=== PATIENT | female | born 1935 | race Caucasian/White ===

== ENCOUNTER 2016-05-07 14:23 | Inpatient (IN) | payer OTHER ==
[2016-05-07 15:51] LABS: URINE MICRO REVIEW NEEDED? NO; URINE SOURCE CLEAN CATCH
--- NOTE | 2016-05-07 15:56 | Diag Imaging Result Document ---
PROCEDURE NAME: CHEST-2 VIEWS - 05/07/2016 FRONTAL AND LATERAL CHEST, 2 VIEWS. COMPARISON: Compared to 04/26/2016. FINDINGS: The lungs are well expanded. The heart is not enlarged. The vessels are not distended. No pneumonia. No pleural effusions. IMPRESSION: No acute abnormality.
[2016-05-07 15:59] LABS: BILIRUBIN URINE NEGATIVE (NEGATIVE); BLOOD URINE SMALL (NEGATIVE); COLOR YELLOW; GLUCOSE URINE NEGATIVE (NEGATIVE); LEUKOCYTES URINE SMALL (NEGATIVE); NITRITE URINE NEGATIVE (NEGATIVE); PROTEIN URINE TRACE mg/dL (NEGATIVE); SP GRAVITY URINE 1.018; TURBIDITY URINE HAZY (CLEAR); UROBILINOGEN URINE NORMAL (NORMAL)
[2016-05-07 16:00] LABS: BASO% 0.1 % (0.0-0.8); EOS# 0.02 X1000 (0.0-0.7); EOS% 0.1 % (0.0-10.0); HEMATOCRIT 35.5 % (37.0-47.0); HEMOGLOBIN 12.8 g/dL (12.0-16.0); IMM GRAN# 0.34 X1000 (0.0-0.04); IMM GRAN% 2.2 % (0.0-0.5); LYMPH# 0.85 X1000 (1.2-3.4); LYMPH% 5.5 % (20.5-51.1); MANUAL DIFF NEEDED? NO; MCH 28.1 PG (27-31); MCHC 36.1 g/dL (33-37); MONO# 0.99 X1000 (0.11-0.59); MONO% 6.5 % (1.7-9.3); MPV 10.5 FL (7.4-10.4); NEUT% 85.6 % (42.2-75.2); PLT 382 X1000 (130-400); RBC 4.55 XMIL (4.2-5.4)
[2016-05-07 16:01] LABS: UR EPITHELIAL CELLS <10 /HPF (<10); URINE BACTERIA 1+ /HPF; URINE CULTURE NEEDED? YES; URINE WBC <10 /HPF (<10)
--- NOTE | 2016-05-07 16:12 | Diag Imaging Result Document ---
PROCEDURE NAME: ABDOMEN FLAT/UPRIGHT - 05/07/2016 SITTING UPRIGHT AND SUPINE ABDOMEN 2 VIEWS: FINDINGS: There are distended small bowel loops in mid and lower abdomen and pelvis. There are multiple surgical clips in the pelvis and right abdomen. No free air beneath the diaphragm. No organomegaly. IMPRESSION: Distended small bowel loops consistent with a small-bowel obstruction.
[2016-05-07 16:14] LABS: ALBUMIN 3.7 g/dL (3.5-5.0); CALCIUM 8.5 mg/dL (8.8-10.2); POTASSIUM 5.5 mmol/L (3.5-5.1); TOTAL BILIRUBIN 0.46 mg/dL (0.20-1.00); TOTAL PROTEIN 6.2 g/dL (6.3-8.3)
[2016-05-07] MEDS ORDERED: CORTROSYN IV ONE (16:20)
[2016-05-07] MEDS ORDERED: NS 500 ML IV ONE (16:23)
[2016-05-07] MEDS ORDERED: SODIUM CHLORIDE 0.9% 10 ML ONE (16:48)
--- NOTE | 2016-05-07 18:25 | HISTORY AND PHYSICAL ---
CHIEF COMPLAINT: Persistent vomiting. PRESENT ILLNESS: Ms. Prather is an 80-year-old white female, followed in my office for many years with multiple medical problems, including type 2 diabetes mellitus, essential hypertension, hyperlipidemia, hypothyroidism, psoriasis, peptic ulcer disease and rheumatoid arthritis. She was admitted 2 weeks ago with acute symptomatic cholecystitis and underwent cholecystectomy on 04/25/2016, laparoscopically by Dr. Marie. Postoperatively she had an episode of pulmonary edema in the recovery room which required overnight observation in the ICU and IV Lasix. Her echocardiogram confirmed her aortic stenosis had progressed to severe bordering on critical. She had some nausea and vomiting after surgery, but was discharged on 04/28/2016 after 24 hours of no vomiting or nausea. Since discharge, she has had variable amounts of nausea, fairly well controlled with intermittent doses of Zofran and Phenergan tablets. For approximately 2 days, she has been unable to walk to the bathroom, but has been able to stand and transfer to a wheelchair for these trips. She has eaten some yogurt, chicken noodle soup, and drank clear liquids without much difficulty. Today, her called and said he felt she was weaker than usual and needed to be evaluated. He felt he could not get in the car and would require an ambulance. In the emergency room, laboratory has documented acute renal failure with a BUN of 135 , creatinine of 6.7, and serum sodium of 117 potassium 5.5. Acid base status is normal. Glucose is 121. She has been passing urine relatively normally. She denies dysuria. PAST MEDICAL HISTORY: Paroxysmal atrial fibrillation since 2012, [facility] [place] and treated with Eliquis and diltiazem. Approximately 5-6 years ago she has been admitted for GI bleed due to gastric ulcer from nonsteroidals. She is followed by Dr. 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 She has been type 2 diabetic for years and she has not generally been difficult to control. Her last hemoglobin A1c was 6.9. ALLERGIES: Cephalosporins, penicillin, sulfa drugs, tetracyclines, codeine and Lipitor. HOME MEDICATIONS: Eliquis 5 mg twice a day. Prandin 0.5 mg 3 times a day before meals. Carvedilol 25 mg twice a day. Sinemet CR 25/100, 1 at bedtime for restless legs. Metoclopramide 5 mg before meals as needed for nausea and vomiting. Diltiazem long-acting 120 mg q.12 hours. Prozac 20 mg every a.m. Folic acid 1 mg daily. Levothyroxine 100 mcg daily. Metformin ER 750 twice a day. Zofran ODT 4 mg q.6 hours p.r.n. nausea and vomiting. Ramipril 10 mg daily. Spironolactone/hydrochlorothiazide 25/25 1 daily. PAST SURGICAL HISTORY: Appendectomy years ago. Recent laparoscopic cholecystectomy. REVIEW OF SYSTEMS: General: No headache, fever, chills, night sweats. She is uncertain about weight loss. HEENT: Vision and hearing are adequate without recent changes. No difficulty chewing or swallowing. She has chronically reduced hearing in the left ear. Respiratory: No shortness of breath, cough, wheezing, chronic lung disease. Cardiovascular: No history of angina or ischemic heart disease. No recent chest pain. She denies orthopnea, but does sleep in a recliner for comfort. GI: Her appetite has been somewhat reduced due to the nausea. She denies any melena or coffee-ground emesis. : No dysuria, increased frequency of urination or hematuria. Neurologic: No history of strokes or seizures. Psychiatric: No major problems, but has taken Prozac daily for quite some time for slightly depressed mood. No memory problems noted. During her recent hospitalization she had occasional spells of very mild disorientation that many of her family noticed. Dermatologic: Mild psoriasis, well controlled with topical medications. Musculoskeletal: Stable but fairly moderate morning stiffness in multiple joints lasting 15-20 minutes, predominantly wrist and MCP joints. PHYSICAL EXAMINATION: VITAL SIGNS: Temperature is not recorded. Pulse is 80, blood pressure 114/30, respiratory rate 18, O2 saturation 97% on room air. GENERAL APPEARANCE: Obese, pale, elderly woman who is alert and oriented x3. SKIN: Warm, slightly pale without jaundice. Pupils equal, round, react to light. No scleral icterus. Oropharynx is benign. NECK: Supple. No adenopathy, JVD, thyromegaly or bruits. CARDIOVASCULAR: Regular rate and rhythm. Apical rate of 80. S1-S2 unremarkable. There is 3/6 systolic ejection murmur left upper sternal border with some radiation to the right upper sternal border and apex. This is moderately harsh sounding. There is no edema. RESPIRATORY: Lungs are clear to auscultation anteriorly and posteriorly. GI: Abdomen is soft, obese and nontender with no rebound tenderness or rigidity. Bowel sounds are slightly reduced, but active in all 4 quadrants. No CVA tenderness. EXTREMITIES: Moderate bilateral venous stasis changes in both distal shins. NEUROLOGIC: Mental status is normal. Cranial nerve examination is unremarkable. She moves all extremities on command. Gait is not tested. DATABASE: White blood count 15,300, hemoglobin 12.8, hematocrit 35.5, MCV is 78 , platelet count is 382,000. Sodium 118, potassium 5.5, BUN 135, creatinine 6.7, glucose 121, calcium 8.5, albumin 3.7. Urinalysis shows trace protein, less than 10 WBCs. 1+ bacteria. Abdominal x-ray shows some dilated and distended loops of small bowel in the mid and lower abdomen with no free air or organomegaly. Chest x-ray shows clear lungs. Normal heart size. No pleural effusions. ASSESSMENT: 1. Persistent nausea, vomiting. 2. Acute renal failure with elevated BUN and creatinine. Her baseline BUN is 10 -15, baseline creatinine 0.8 to 1. I have consulted Dr. Galindo and we have discussed multiple causes, including dehydration exacerbated by YOLIS inhibitors, interstitial nephritis, acute obstruction. 3. Hyponatremia. I feel we should rule out acute adrenal crisis with a Cortrosyn stem test. I have ordered 1 dose of IV Solu-Cortef pending results from this test. 4. Type 2 diabetes. Relatively well controlled. 5. We will hold metformin and Prandin for now, check fingerstick blood sugars twice a day and I doubt she will need supplemental insulin, but will order some just in case. 6. Leukocytosis, probably stress, will follow and hold antibiotics for now. Her examination does not suggest intra-abdominal infection and her urinalysis is unremarkable. Chest x-ray is clear. 7. Hypothyroidism, she has been taking her levothyroxine and thyroid stimulating hormones within the last several months was normal, but we will repeat this due to her hyponatremia. 8. Persistent vomiting, probably an ileus due to her hyponatremia, but small bowel obstruction is possible. I will get Dr. Marie, her surgeon to consult as well. PLAN: Admit for intravenous fluid and multiple evaluations as listed above. MTDD
[2016-05-07] MEDS ORDERED: BLISTEX MEDICATED BERRY LIP BALM TOP PRN (18:34)
[2016-05-07] MEDS ORDERED: PHENERGAN PR PRN (18:34)
[2016-05-07] MEDS ORDERED: SODIUM CHLORIDE 0.9% INJ SCH (18:34)
[2016-05-07] MEDS: NS 1,000 ML IV SCH (18:44)
[2016-05-07 18:53] LABS: URINE MICRO REVIEW NEEDED? NO; URINE SOURCE CATH
[2016-05-07 18:57] LABS: BILIRUBIN URINE NEGATIVE (NEGATIVE); BLOOD URINE NEGATIVE (NEGATIVE); COLOR YELLOW; GLUCOSE URINE NEGATIVE (NEGATIVE); LEUKOCYTES URINE NEGATIVE (NEGATIVE); NITRITE URINE NEGATIVE (NEGATIVE); PROTEIN URINE TRACE mg/dL (NEGATIVE); SP GRAVITY URINE 1.016; TURBIDITY URINE CLEAR (CLEAR); UROBILINOGEN URINE NORMAL (NORMAL)
[2016-05-07 18:58] LABS: UR EPITHELIAL CELLS <10 /HPF (<10); URINE BACTERIA NEGATIVE /HPF; URINE RBC <10 /HPF (<10); URINE WBC <10 /HPF (<10)
[2016-05-07 19:18] LABS: UR CREAT RANDOM 112.8 mg/dL (11-20); UR PROT RANDOM 19.5 mg/dL
--- NOTE | 2016-05-07 19:24 | CONSULTATION ---
DATE OF CONSULTATION: 05/07/2016 REASON FOR CONSULTATION: Acute kidney injury. HISTORY OF PRESENT ILLNESS: Ms. Prather is an 80-year-old white female with a history of aortic stenosis, venous stasis disease, hypertension. She had a recent cholecystectomy by Dr. Marie on the of this month. She was discharged on the and since that time she has been sick with anorexia, nausea, frequent vomiting and diarrhea. She has had progressive weakness, fatigue and limited mobility. She has noticed decrease in her urine output as well. Because of these symptoms, she contacted Dr. Lewis and then came to the emergency room. Her initial evaluation found her vital signs to be acceptable with a blood pressure of 114/70, heart rate of 80 but her initial laboratory data had evidence of acute kidney injury with hyponatremia. Historically, her creatinine was 1.4 on the and 0.8 on the . PAST MEDICAL HISTORY: As above. HOME MEDICATIONS: YOLIS inhibitor. ALLERGIES: Cephalexin, codeine, penicillin sulfa. SOCIAL HISTORY: She is and lives with her . No tobacco. FAMILY HISTORY: Otherwise noncontributory. REVIEW OF SYSTEMS: Otherwise noncontributory. PHYSICAL EXAMINATION: Vital Signs: Blood pressure 114/70, heart rate 80, respirations 18, afebrile. General: She is an elderly woman, lying at 20 degrees, no distress. Skin: Pale and dry. Conjunctivae are pink. Pupils are equal. Oropharynx is dry. Neck: Neck veins are not visible. Trachea is midline. Heart: Regular with a prominent systolic murmur. Late peaking loudest at the right upper sternal border. No gallops. Lungs: Equal breath sounds. No crackles. Abdomen: Obese and soft. Bowel sounds are present but diminished. Nontender. No organomegaly. Extremities: Trace edema in the right leg, none in the left. No clubbing or cyanosis. LABORATORY DATA: Sodium 118, potassium 5.5, chloride 68, bicarbonate 28, BUN 135, creatinine 6.7, hemoglobin 12.8. IMPRESSION: Acute kidney injury. Likely intravascular volume depletion in the context of YOLIS inhibitor therapy. This also likely explains her hyponatremia. She has received 0.5 L bolus and will receive 60 mL overnight. I agree with gentle IV fluid administration given her significant cardiac valvular disease. We will check urine electrolytes, eosinophils, etc. Re-evaluate in the morning.
[2016-05-07] MEDS ORDERED: SOLU-CORTEF IV ONE (20:00)
[2016-05-07] MEDS ORDERED: SYNTHROID IV ONE (22:00)
[2016-05-07] MEDS: SINEMET CR 25/100 PO SCH (22:45)
[2016-05-07] MEDS: COREG PO SCH (22:45)
[2016-05-07] MEDS: REGLAN IV SCH (22:45)
[2016-05-07] MEDS: ELIQUIS PO SCH (22:45)
[2016-05-07] MEDS: CARDIZEM LA PO SCH (22:45)
[2016-05-08] MEDS: REGLAN IV SCH ×4 (04:22→20:54)
[2016-05-08 07:02] LABS: POTASSIUM 4.6 mmol/L (3.5-5.1)
[2016-05-08] MEDS ORDERED: NS 500 ML IV ONE ×2 (08:31→14:12)
[2016-05-08] MEDS: CARDIZEM LA PO SCH ×2 (09:16→20:43)
[2016-05-08] MEDS: SYNTHROID PO SCH (09:16)
[2016-05-08] MEDS: ELIQUIS PO SCH ×2 (09:16→20:43)
[2016-05-08] MEDS: COREG PO SCH ×2 (09:16→20:43)
[2016-05-08] MEDS: NS 1,000 ML IV SCH ×2 (09:19→12:43)
--- NOTE | 2016-05-08 10:14 | Diag Imaging Result Document ---
PROCEDURE NAME: US RENAL 2 (RETROPER) COMPLETE - 05/08/2016 RENAL ULTRASOUND: COMPARISON: None available. FINDINGS: There is a tiny simple-appearing cyst measuring up to 7 mm at the lower pole of the right kidney. The kidneys are otherwise grossly normal in echotexture with no discrete solid mass or hydronephrosis. The right kidney measures 12.1 cm, and the left kidney measures 10.3 cm in the greatest longitudinal axes. The right renal cortex measures up to 0.9 cm, and the left renal cortex measures up to 1.1 cm in thickness. There is a Gallego catheter in the urinary bladder. The bladder is nondistended. IMPRESSION: Tiny right renal cyst but otherwise essentially unremarkable renal ultrasound.
--- NOTE | 2016-05-08 11:38 | PROGRESS NOTE ---
DATE: 05/08/2016 SUBJECTIVE: Ms. Prather is currently sitting in a chair. She denies any chest pain or increased work of breathing. She is finishing her breakfast and brushing her teeth. States that she is feeling much better. OBJECTIVE: Vital Signs: Temperature 97.6 degrees, blood pressure 122/48, heart rate 78, respirations 20. She remains on room air. Last recorded saturation 100%. She has had 626 in. She has had 250 out per Gallego catheter. We have requested that they continue to keep an accurate I and O. PHYSICAL EXAMINATION: General: This is an 80-year-old white female. She is currently resting in bed. She appears chronically ill, with no acute distress. Skin: Warm and dry. HEENT: Normocephalic, atraumatic. Conjunctiva is pale. She has pupils equal, round, and reactive to light. Mucous membranes moist. Neck: Supple. Trachea midline. No jugular venous distention. Cardiovascular: Regular rate and rhythm with a positive systolic murmur. No gallop appreciated. Lungs: Clear to auscultation anteriorly. Equal excursion. She is currently on room air. Abdomen: Large, round, soft, and nontender. Positive bowel sounds. Extremities: Have trace edema on the right, with minimal pretibial on the left. She continues with chronic venous stasis while she is sitting up in a chair. Mostly reddened in appearance to her lower legs. No clubbing or cyanosis. Neurological: Alert and oriented x3. LABS: This a.m. sodium is 121, potassium 4.6, chloride 73, CO2 25. BUN 145, creatinine 5.8. Glucose 126. Her anion gap is 23. Her calcium is 8, phosphorus 5.1, albumin of 3. Previous hemoglobin 12.8 on the . Her TSH came back at 15.15. Urinalysis shows trace proteinuria. Urine culture came back with gram-positive cocci. Sensitivity still pending. Renal ultrasound right kidney measuring 12.1 and the left measuring 10.3, with a simple cyst to the right lower pole. ASSESSMENT AND PLAN: 1. Acute kidney injury. This appears to be secondary to fluid volume depletion in the context of her YOLIS. This is currently being held. She is receiving gentle fluid hydration of normal saline at 50 mL an hour. Her urine eosinophils came back at 0.02. We still have urine electrolytes that are still pending. 2. Electrolytes. Her hyponatremia is improved and she is asymptomatic. Continue NS. 3. Acid-base balance. Patient continues with an anion gap acidosis. We will continue to monitor. No further indications for intervention at this time. 4. Anemia. This remains low, but stable. 5. Nausea and vomiting. This has continued to improve. She is currently continued off her YOLIS and her metformin. No indications for any intervention at this time. 6. Questionable ileus. Dr. Marie is currently following. I would to thank you for allowing us to follow with this patient. Seen, data reviewed, discussed with Ekaterina Howell on 05/08/16. I agree with the above assessment and plan of care. rg Dictated by CARLOS Anderson for Efren Galindo MD [facility] HOSPITALDelroy
[2016-05-08] MEDS: SINEMET CR 25/100 PO SCH (20:43)
[2016-05-09] MEDS: REGLAN IV SCH ×4 (01:55→22:07)
[2016-05-09] MEDS: NS 1,000 ML IV SCH ×4 (01:56→15:08)
[2016-05-09 06:47] LABS: MANUAL DIFF NEEDED? NO
[2016-05-09 07:10] LABS: CALCIUM 7.4 mg/dL (8.8-10.2); POTASSIUM 4.2 mmol/L (3.5-5.1)
[2016-05-09 07:27] LABS: BASO% 0.2 % (0.0-0.8); EOS# 0.06 X1000 (0.0-0.7); EOS% 0.5 % (0.0-10.0); HEMATOCRIT 30.9 % (37.0-47.0); HEMOGLOBIN 10.9 g/dL (12.0-16.0); IMM GRAN# 0.45 X1000 (0.0-0.04); IMM GRAN% 3.5 % (0.0-0.5); LYMPH# 0.85 X1000 (1.2-3.4); LYMPH% 6.6 % (20.5-51.1); MCH 27.9 PG (27-31); MCHC 35.3 g/dL (33-37); MCV 79.2 FL (81-99); MONO# 0.87 X1000 (0.11-0.59); MONO% 6.8 % (1.7-9.3); MPV 10.8 FL (7.4-10.4); NEUT% 82.4 % (42.2-75.2); PLT 242 X1000 (130-400)
--- NOTE | 2016-05-09 07:54 | PROGRESS NOTE ---
DATE: 05/09/2016 HISTORY OF PRESENT ILLNESS: Ms. Marly Prather earlier this month underwent a laparoscopic cholecystectomy with intraoperative cholangiogram for symptomatic cholelithiasis. In the perioperative period, she had a low sodium. She had to be hospitalized several days after her cholecystectomy and then was discharged home but while home, she had nausea and vomiting, and also diarrhea. She was readmitted with acute renal failure and low sodium to Michael Lewis MD. Her electrolytes are being corrected. An abdominal x-ray suggested ileus. OBJECTIVE: Her heart rate is 75, blood pressure 129/54, O2 saturation 97%. Her urine output is adequate. Her BUN and creatinine are improving. Her BUN is 140, creatinine is 5, her sodium was 122, and chloride is 80. Liver function tests on admission were within normal limits. Her hematocrit is 31% and her white blood cell count has gone from 15-12. She is continuing to have loose bowel movements. She is afebrile. PLAN: I agree with Dr. Lewis to continue to correct her electrolytes. I would be surprised if there is any bowel obstruction from her laparoscopic cholecystectomy. I feel we did the operation safely and we did do an intraoperative cholangiogram at the time of surgery and there were no abnormalities on this study. All her trocar sites are healing well and she has no significant abdominal pain.
[2016-05-09] MEDS: ZOFRAN ODT PO PRN (08:39)
--- NOTE | 2016-05-09 10:10 | PROGRESS NOTE ---
DATE: 05/09/2016 SUBJECTIVE: Currently resting in bed. She is awake, alert. She states that she sat up in a chair for several hours yesterday and is feeling somewhat better. OBJECTIVE: Vital Signs: Temperature 97.9 degrees, pulse 75, respiratory rate 20, blood pressure 129/54. Intake and output: Intake 1.2 L. Output 1 L. General: This is an elderly female, sitting up in bed, chronically ill-appearing but in no acute distress. HEENT: Normocephalic, atraumatic. Conjunctivae remain pale. Oral mucosa moist. Neck: Supple. Trachea midline without JVD. Cardiovascular: Regular rate and rhythm with a systolic murmur. Pulmonary: Equal excursion. She is clear bilaterally. She has no increased work of breathing. Abdomen: Round, soft, with positive bowel sounds. Extremities: She continues with 1+ pretibial edema and chronic venous stasis changes bilateral lower extremities. She does have redness noted bilateral lower extremities, somewhat speckled and appearance. Her extremities are warm and she is moving all extremities. Integumentary: Skin is warm and dry otherwise. Neurologic: Grossly nonfocal. Awake, alert, oriented x3 to 4. LAB DATA: WBC of 12.8, hemoglobin 10.9, hematocrit 30.9, platelet count of 242, 000. Sodium 122, potassium 4.2, CO2 25, BUN 140, creatinine 5.0. ASSESSMENT AND PLAN: 1. Acute kidney injury with modest improvement. We will continue current treatment and make no changes. Recheck labs in the morning. 2. Electrolytes. Her sodium is stable at 122. Observe. 3. Acid-base balance, anemia, stable. 4. Nausea and vomiting. Followed by primary. 5. Question ileus. Followed by surgery. Seen, data reviewed, discussed with Kendrick Mac on 05/09/16. I agree with the above assessment and plan of care. rg Dictated by CARLOS Saucedo for Efren Galindo MD [facility]
[2016-05-09] MEDS: ELIQUIS PO SCH ×2 (10:48→22:07)
[2016-05-09] MEDS: SYNTHROID PO SCH (10:48)
[2016-05-09] MEDS: MACROBID PO SCH ×2 (10:48→22:06)
[2016-05-09] MEDS: COREG PO SCH ×2 (10:49→22:06)
[2016-05-09] MEDS: CARDIZEM LA PO SCH ×2 (10:49→22:07)
[2016-05-09] MEDS: HUMALOG SUBQ PRN (17:44)
[2016-05-09] MEDS: SINEMET CR 25/100 PO SCH (22:06)
[2016-05-10] MEDS: NS 1,000 ML IV SCH ×2 (03:04→12:12)
[2016-05-10 06:51] LABS: ALBUMIN 3.1 g/dL (3.5-5.0); CALCIUM 7.2 mg/dL (8.8-10.2); POTASSIUM 3.9 mmol/L (3.5-5.1)
--- NOTE | 2016-05-10 07:46 | PROGRESS NOTE ---
DATE: 05/10/2016 Ms. Prather is an 80-year-old white female, patient of Dr. Lewis, who approximately 2 weeks ago underwent a laparoscopic cholecystectomy for gallstones. At the time of surgery, we did do an intraoperative cholangiogram, which showed no evidence of extrahepatic stones nor obstruction. There was free flow of dye into the duodenum. She was discharged several days after her laparoscopic cholecystectomy but returned with nausea, vomiting, acute renal failure, dehydration, and decreased sodium. She is now hospital day 4 and has improved clinically with hydration per Dr. Lewis. Her heart rate is 59, blood pressure 131/64. O2 saturation 98%. Her urine output has been good and her BUN and creatinine are decreasing daily. Her BUN is 120. Creatinine 3.4 today. Her sodium is 125, chloride is 84. Her hematocrit is 31% and her white blood cell count is 12.8. She has been able to tolerate a diet and she has had regular liquid bowel movements. All her trocar sites are healing well, and she has no worrisome abdominal pain. Her Clostridium difficile toxin A and B is negative. I feel that as her electrolytes return to normal and her kidney function that her ileus will resolve intra-abdominally. I think she is okay from her recent laparoscopic cholecystectomy. I will be off for the New Year's weak and [facility] will cover if necessary.
[2016-05-10] MEDS: REGLAN IV SCH (10:12)
[2016-05-10] MEDS: ELIQUIS PO SCH ×2 (10:13→22:41)
[2016-05-10] MEDS: SYNTHROID PO SCH (10:13)
[2016-05-10] MEDS: ZOFRAN ODT PO PRN (10:13)
[2016-05-10] MEDS: COREG PO SCH ×2 (10:13→22:41)
[2016-05-10] MEDS: CARDIZEM LA PO SCH ×2 (10:13→22:41)
--- NOTE | 2016-05-10 11:39 | CONSULTATION ---
DATE OF CONSULTATION: 05/10/2016 REASON FOR REFERRAL: Nausea, vomiting, diarrhea. HISTORY OF PRESENT ILLNESS: This is an 80-year-old, white female, who had recent laparoscopic cholecystectomy on 04/25/[address] Marie. Postoperatively, she had some complaints of nausea and vomiting. She was discharged home on 04/28/2016. She had continued to complain of some nausea. She became weak and was unable to walk and they called ambulance to bring her to the hospital for further evaluation. Admit date 05/07/2016. On evaluation, she had acute renal failure. She has been seen by Dr. Galindo. Since her admission, her symptoms have slowly improved. X-ray had showed possible ileus. She does report having some diarrhea. She has been able to tolerate some full liquid diet. She states her symptoms are currently improving. No reported abdominal pain. She reported some gas. Reported nausea and gagging, but no reported vomiting over the last several days. No reported blood in the stool or black stools. She reports having a colonoscopy years ago by Dr. Snow in [place]. She reports a history of GI bleed and gastric ulcers years ago. PAST MEDICAL HISTORY: Atrial fibrillation. Followed by Dr. Underwood in [place]. Type 2 diabetes, hypertension, hyperlipidemia, hypothyroidism, psoriasis, peptic ulcer disease. Rheumatoid arthritis. PAST SURGICAL HISTORY: Appendectomy. She had recent laparoscopic cholecystectomy by Dr. Marie on 04/25/2016. ALLERGIES: To cephalosporins, penicillin, sulfa drugs, codeine. HOME MEDICATIONS: Sinemet every night. Eliquis 5 mg twice a day. Cardizem 120 every 12 hours. Coreg 12.5 every 12 hours, folic acid 1 mg daily. Prozac 20 mg daily. Guaifenesin 600 mg every 12 hours. Glucophage 750 mg twice a day. Synthroid 100 mcg daily. Reglan 5 mg a.c. and at bedtime, Altace 10 mg every morning. Ondansetron 4 mg every 6 hours as needed. Spironolactone every day, Prandin 1 mg 3 times a day. SOCIAL HISTORY: She is . She denies tobacco use. REVIEW OF SYSTEMS: Per HPI. PHYSICAL EXAM: Vital Signs: Temperature 97.5, pulse 65, respirations 17, blood pressure 121/47. General Exam: Patient is awake, alert, and oriented to person, place and time. She is sitting up in a chair. No distress noted. Respiratory: Lung sounds essentially clear bilaterally. Cardiovascular: Regular rate and rhythm. She has a noted murmur. GI: Obese, nontender. She has healing laparoscopic incisions from her cholecystectomy. Hypoactive bowel sounds noted. DIAGNOSTIC RESULTS: Abdominal x-ray on 05/07/2016 showed distended small bowel loops consistent with a small-bowel obstruction. LABORATORY: Hematology on 05/09/2016, WBC 12.81, hemoglobin 10.9, hematocrit 30.9, MCV 79.2, platelets 242. Chemistry: Sodium 125, potassium 3.9, chloride 84, CO2 of 25, BUN 120. Creatinine 3.4, glucose 160, calcium 7.2. Phosphorus 2.9, total bilirubin 0.46. AST 25, ALT 19, alkaline phosphatase 46. ASSESSMENT: 1. Nausea, vomiting improved. 2. Recent laparoscopic cholecystectomy. 3. Ileus versus small bowel obstruction. 4. Electrolyte imbalance. 5. Acute kidney injury, followed by Dr. Galindo. PLAN: Continue symptomatic treatment and supportive care. Replace electrolytes. Repeat abdominal x-ray in the morning. Patient states her symptoms are improving. I discussed with her the options of proceeding with an EGD for further evaluation, but she states she wants to hold off proceeding for now, since her symptoms are improving. I will discuss this case with Dr. Clements. He is on-call over the holiday weekend. Further plans will be made as needed. Continue medications. We will add PPI. Thank you for this consultation. Dictated by CARLOS Kiser for Med Clements MD
[2016-05-10] MEDS: REGLAN PO SCH ×3 (12:12→22:41)
--- NOTE | 2016-05-10 14:04 | PROGRESS NOTE ---
DATE: 05/10/2016 SUBJECTIVE: She is sitting up. She states she still had some nausea and some diarrhea. No shortness of breath. OBJECTIVE: Vital Signs: Blood pressure 121/47, heart rate 65, respirations 17, afebrile. Intake 3.6 L. Output 2.2 L. Physical Exam: Elderly woman in no acute distress. Sitting erect. Skin: Warm and dry. HEENT: Conjunctivae are pink. Oropharynx is moist. Neck: Neck veins are not distended. Trachea is midline. Heart: Regular with systolic murmur. No change. Lungs: Have equal excursion. Equal breath sounds. No crackles. Abdomen: Obese and soft. Bowel sounds are present. Extremities: Have 1+ edema. No clubbing or cyanosis. LABORATORY DATA: Sodium 125, potassium 3.9, chloride 84, bicarbonate 25, BUN 120, creatinine 3.4. IMPRESSION: 1. Acute kidney injury. Progressive improvement with gentle IV fluids. She is net positive approximately 3 L since admission. Of course, her liquid stool has not been accounted for. She does have more edema but her neck veins are not distended. and she does not have crackles so we will continue same treatment. 2. Hyponatremia: Slow improvement. Continue same.
[2016-05-10] MEDS: HUMALOG SUBQ PRN (17:18)
[2016-05-10] MEDS: SINEMET CR 25/100 PO SCH (22:41)
[2016-05-11] MEDS: NS 1,000 ML IV SCH (01:54)
[2016-05-11] MEDS: PRILOSEC PO SCH (06:24)
[2016-05-11] MEDS: REGLAN PO SCH ×4 (06:24→21:45)
[2016-05-11] MEDS: HUMALOG SUBQ PRN (06:53)
[2016-05-11 07:31] LABS: CALCIUM 7.5 mg/dL (8.8-10.2); POTASSIUM 4.1 mmol/L (3.5-5.1)
[2016-05-11] MEDS: COREG PO SCH (09:12)
[2016-05-11] MEDS: ELIQUIS PO SCH ×2 (09:12→21:45)
[2016-05-11] MEDS: CARDIZEM LA PO SCH (09:12)
[2016-05-11] MEDS: SYNTHROID PO SCH (09:12)
--- NOTE | 2016-05-11 09:19 | Diag Imaging Result Document ---
PROCEDURE NAME: ABDOMEN FLAT/UPRIGHT - 05/11/2016 X-RAY ABDOMEN 2 VIEWS: COMPARISON: 05/07/2016. FINDINGS: There is not much change in the small bowel obstruction. No colon gas. IMPRESSION: Persistent small-bowel obstruction.
--- NOTE | 2016-05-11 10:30 | PROGRESS NOTE ---
DATE: 05/11/2016 SUBJECTIVE: Mrs. Prather was admitted to [facility] with intractable nausea, vomiting, and abdominal pain. She was status post recent laparoscopic cholecystectomy. Her abdominal film on 05/07/2016 demonstrated distended small bowel loops consistent with a small bowel obstruction. She continues with persistent nausea and dry heaves but has not had any vomiting. She is still having intermittent episodes of diarrhea. She also still has some abdominal bloating and distention. Repeat abdominal films today demonstrated persistent small bowel obstruction. There was no colon gas. Renal function continues to improve significantly with cautious rehydration. Her BUN and creatinine have dropped from 120 and 3.4 to 95 and 2.2. Her blood sugars are still fluctuating. OBJECTIVE: Vital Signs: Temperature 98.3 degrees. Pulse 61. Respirations 19. BP 108/45. CV: Regular rate and rhythm with a soft systolic murmur at the left sternal margin. Lungs: Clear. Abdomen: Mildly distended but soft. She has some high pitched bowel sounds. Various. LABORATORY DATA: Various laboratory studies were obtained. A BMP demonstrated the following: Sodium 125, potassium 4.1, chloride 88, CO2 of 20, BUN 95, creatinine 2.2, and glucose 211. ASSESSMENT AND PLAN: 1. Acute renal failure. Her renal function continues to improve. We will continue gentle hydration and check a BMP in the morning. 2. Small bowel obstruction. Clinically, her symptoms have improved but she still has what appears to be a persistent small bowel obstruction on x-rays. Her abdomen is mildly distended but soft. I talked to her at length about placing an NG tube to decompress her stomach but she does not want to have an NG tube at this point in time. I am going to hold her NPO, continue cautious fluid resuscitation, and treat her nausea and vomiting on a p.r.n. basis with Zofran. I will recheck a flat and upright abdominal film in the morning.
--- NOTE | 2016-05-11 12:01 | PROGRESS NOTE ---
DATE: 05/11/2016 SUBJECTIVE: She states she is passing some gas and may be having some improvement regarding her GI symptoms. No shortness of breath. OBJECTIVE: Vital Signs: Blood pressure 108/45, heart rate 61, respirations 19, afebrile. Intake 2.3 L. Output 400 mL. PHYSICAL EXAMINATION: No acute distress. Skin is warm and dry. Conjunctivae are pink. Trachea is midline. Neck veins are modestly distended with hepatojugular reflux. Heart os regular with systolic murmur. Lungs have equal breath sounds. Shallow, no crackles. Abdomen is obese and soft. Bowel sounds are present. Extremities have 1+ edema. No clubbing or cyanosis. LABORATORY DATA: Sodium 125, potassium 4.1, chloride 88, bicarbonate 20, BUN 95, creatinine 2.2. IMPRESSION: 1. Acute kidney injury: Progressive improvement. She has signs of modest volume x overload at this point, so I will stop her IV fluids and observe. 2. Hyponatremia. Progressive improvement. Sow. No changes except as above.
[2016-05-11] MEDS ORDERED: DULCOLAX PR ONE (13:45)
--- NOTE | 2016-05-11 17:47 | PROGRESS NOTE ---
DATE: 05/11/2016 Mrs. Prather reports that she is feeling better this afternoon she has not had any nausea or vomiting. She is passing flatus and passed a small soft semiformed stools. She does have intermittent diarrhea. She denies any chest pain, palpitations, or anginal equivalents. We will continue fluids and NPO status and recheck a flat and upright abdominal film in the morning. If she continues to pass flatus and small semiformed stools and her abdominal films are improved, we will begin clear liquids in the morning.
[2016-05-11] MEDS: SINEMET CR 25/100 PO SCH (21:45)
[2016-05-12] MEDS: COREG PO SCH ×3 (03:56→21:57)
[2016-05-12] MEDS: CARDIZEM LA PO SCH ×3 (03:56→21:57)
[2016-05-12] MEDS: PRILOSEC PO SCH (06:18)
[2016-05-12] MEDS: REGLAN PO SCH ×4 (06:18→21:55)
[2016-05-12 07:18] LABS: CALCIUM 7.7 mg/dL (8.8-10.2); POTASSIUM 3.9 mmol/L (3.5-5.1)
[2016-05-12] MEDS: SYNTHROID PO SCH (09:19)
[2016-05-12] MEDS: ELIQUIS PO SCH ×2 (09:19→21:55)
--- NOTE | 2016-05-12 10:45 | Diag Imaging Result Document ---
PROCEDURE NAME: ABDOMEN FLAT/UPRIGHT - 05/12/2016 X-RAY ABDOMEN, TWO VIEWS: COMPARISON: 05/12/2016. FINDINGS: There is no change in the persistent high-grade small bowel obstruction. IMPRESSION: No change in the small bowel obstruction.
[2016-05-12] MEDS: MIRALAX PO SCH (14:48)
[2016-05-12] MEDS ORDERED: CALMOSEPTINE OINTMENT TOP PRN (18:35)
--- NOTE | 2016-05-12 19:41 | PROGRESS NOTE ---
DATE: 05/12/2016 SUBJECTIVE: Patient has no complaints. She is alert and smiling. She states that she had a fair amount of stool output yesterday and can tell that her stomach has gone down in girth. She does not have any pain. She has had no nausea or vomiting. OBJECTIVE: Vital Signs: 97.5, 68, 18, 124/41. PHYSICAL EXAMINATION: General: She is a well-developed obese white female in no acute distress. Lungs: Clear to auscultation. Cardiovascular: Reveals a regular rhythm with a 3/6 systolic ejection murmur which sounds loudest in the pulmonic area. Abdomen: Bowel sounds are scarce. She is obese and is difficult to determine just exactly how distended her abdomen is. She is nontender. Extremities: 1+ pitting edema in the lower extremities. Neurologic: Patient is alert, oriented, conversive and appropriate. ASSESSMENT AND PLAN: 1. The patient's acute renal failure seems to have resolves, she is at 1.7 creatinine. Will continue to check this tomorrow. 2. The patient's small bowel obstruction does not seem to have resolved on x-ray but clinically she is vastly improved by her own words. She is still not having regular flatus or bowel movements but seems to be progressing. Her abdominal exam is difficult because of her size. I plan to keep the patient on just clear liquids in the form of ice chips and sips of water. Will continue medications and add MiraLAX. We have medications as needed for nausea or vomiting.
[2016-05-12] MEDS: SINEMET CR 25/100 PO SCH (21:54)
[2016-05-13] MEDS: HUMALOG SUBQ PRN (06:40)
[2016-05-13] MEDS: REGLAN PO SCH ×4 (06:40→22:26)
[2016-05-13] MEDS: PRILOSEC PO SCH (06:40)
[2016-05-13 06:52] LABS: MANUAL DIFF NEEDED? NO
[2016-05-13 06:57] LABS: BASO% 0.1 % (0.0-0.8); EOS# 0.16 X1000 (0.0-0.7); EOS% 1.7 % (0.0-10.0); HEMATOCRIT 29.2 % (37.0-47.0); HEMOGLOBIN 9.8 g/dL (12.0-16.0); LYMPH# 0.81 X1000 (1.2-3.4); LYMPH% 8.4 % (20.5-51.1); MCH 28.2 PG (27-31); MCHC 33.6 g/dL (33-37); MCV 84.1 FL (81-99); MONO# 0.84 X1000 (0.11-0.59); MONO% 8.7 % (1.7-9.3); MPV 10.5 FL (7.4-10.4); NEUT% 81.1 % (42.2-75.2); PLT 204 X1000 (130-400); RBC 3.47 XMIL (4.2-5.4)
[2016-05-13 07:18] LABS: CALCIUM 8.1 mg/dL (8.8-10.2); POTASSIUM 3.8 mmol/L (3.5-5.1)
[2016-05-13] MEDS: COREG PO SCH ×2 (08:37→22:26)
[2016-05-13] MEDS: SYNTHROID PO SCH (08:37)
[2016-05-13] MEDS: CARDIZEM LA PO SCH ×2 (08:37→22:26)
[2016-05-13] MEDS: ELIQUIS PO SCH ×2 (08:37→22:26)
[2016-05-13] MEDS: MIRALAX PO SCH (08:37)
--- NOTE | 2016-05-13 08:47 | PROGRESS NOTE ---
DATE: 05/13/2016 SUBJECTIVE: Ms. Prather is sitting up in a chair. She is tolerating this well. She denies chest pain or increased work of breathing. She denies any nausea, vomiting. OBJECTIVE: Her most recent vital signs, temperature is 97.9 degrees, blood pressure 108/48, heart rate is 65 and respirations 18. She is on room air. Last recorded saturation of 100%. She has had 0 recorded in. She has had 500 out with bowel movements yesterday. LABORATORY DATA: This a.m., sodium 132, potassium 3.8, chloride 95, CO2 23, BUN 70, creatinine 1.4, glucose 188. Her anion gap is 14, calcium 8.1, white count 9.64, hemoglobin 9.8, hematocrit 29.2, with a platelet count of 204,000. PHYSICAL EXAMINATION: General: This is an 80-year-old white female. She is currently resting in a chair. She appears in no acute distress. Skin: Warm and dry. HEENT: Normocephalic, atraumatic. Conjunctiva is pale. She has ZUNILDA. Mucous membranes moist. Neck : Supple. Trachea midline. No JVD. Cardiovascular: Regular rate and rhythm. She has a positive systolic murmur as previous. Lungs: Clear to auscultation anteriorly. Equal excursion. She is on room air. Abdomen: Round, soft, nontender. Positive bowel sounds. Genitourinary: Not inspected. Adequate void. Extremities: Continues with 1+ lower extremity edema. She continues with chronic venous stasis bilateral. No clubbing or cyanosis. Neurological: Alert and oriented x3. ASSESSMENT: 1. Acute kidney injury. Progressive improvement. Patient's fluid volume overload has improved. Her IV fluids have been stopped. Her hyponatremia continues to improve over the last several days. No indications for any intervention at this time. 2. Acid-base balance. This is stable. 3. Anemia. This remains low but stable. No indications for any changes at this time. PLAN: It is okay from our perspective for patient to be discharged. We can follow her up as an outpatient basis as indicated. I would like to thank you for allowing us to follow with this patient. Seen, data reviewed, discussed with Ekaterina Howell on 05/13/16. I agree with the above assessment and plan of care. rg Dictated by CARLOS Anderson for Efren Galindo MD [facility]
--- NOTE | 2016-05-13 10:30 | PROGRESS NOTE ---
DATE: 05/13/2016 SUBJECTIVE: Ms. Prather has was admitted with acute renal insufficiency. Her renal function continues to improve. Her BUN and creatinine 135 and 6.7 on 05/07. This morning. Her BUN and creatinine are 70 and 1.4. She is voiding freely. Lorrie and upright abdominal cells were consistent with a high-grade small-bowel obstruction. Clinically, she reports that she feels much better. Her abdomen is much softer. She is passing some gas. She is having multiple loose stools. She has no nausea or vomiting. range from 185-205. OBJECTIVE: Vital Signs: Temperature 97.4 degrees, pulse 64, respirations 19, blood pressure 129/42. Cardiovascular: Regular rate and rhythm with a soft systolic murmur. Lungs: Clear. Abdomen: Fairly soft and nondistended. No rebound or guarding. She does have some bowel sounds. ASSESSMENT AND PLAN: 1. Small bowel obstruction. Her x-ray showed a small bowel obstruction but clinically her abdomen is fairly soft but mildly distended. She has bowel sounds. She is passing flatus and having bowel movements. I am going to repeat a flat and upright abdominal film today and begin clear liquids. 2. Acute renal failure. Her renal function continues to improve. We will follow her kidney function. I will recheck a BMP in the morning.
--- NOTE | 2016-05-13 12:24 | Diag Imaging Result Document ---
PROCEDURE NAME: ABDOMEN FLAT/UPRIGHT - 05/13/2016 X-RAY ABDOMEN 2 VIEWS: COMPARISON: 05/12/2016. FINDINGS: There is no change in the high-grade small bowel obstruction. IMPRESSION: No change in the small bowel obstruction.
[2016-05-13] MEDS: SINEMET CR 25/100 PO SCH (22:26)
[2016-05-14] MEDS: REGLAN PO SCH ×4 (07:02→20:22)
[2016-05-14] MEDS: PRILOSEC PO SCH (07:02)
[2016-05-14 07:18] LABS: ALBUMIN 3.4 g/dL (3.5-5.0); CALCIUM 8.7 mg/dL (8.8-10.2); POTASSIUM 4.6 mmol/L (3.5-5.1)
[2016-05-14] MEDS: SYNTHROID PO SCH (09:03)
[2016-05-14] MEDS: COREG PO SCH ×2 (09:03→20:22)
[2016-05-14] MEDS: CARDIZEM LA PO SCH ×2 (09:03→20:22)
[2016-05-14] MEDS: ELIQUIS PO SCH ×2 (09:03→20:22)
[2016-05-14] MEDS: MIRALAX PO SCH (09:04)
--- NOTE | 2016-05-14 10:02 | PROGRESS NOTE ---
DATE: 05/14/2016 HISTORY OF PRESENT ILLNESS: Ms. Prather was admitted with abdominal pain. Her initial x-ray of the abdomen demonstrated an ileus versus small bowel obstruction. Her clinical course did not really correlate with her x-ray findings. Her abdomen was fairly soft. She was having nausea. She had been passing gas and had liquid stools. Followup x-rays of the abdomen were consistent with a high-grade small bowel obstruction but her symptoms were not consistent with the x-ray findings. We talked about putting an NG tube in place but she did not want to have an NG tube placed and wanted to try conservative measures. We resumed clear liquids yesterday and this morning, she is with complaint of increasing abdominal bloating and distention. She had some nausea and vomiting. She is still passing liquid stools. Her renal function continues to improve. Her BUN was 61 and her creatinine was 1.4. PHYSICAL EXAMINATION: Vital Signs: Temperature 98.5 degrees, pulse 74, respirations 19, BP 126/45. CV: Regular rate and rhythm with a 2/6 systolic ejection murmur at the left sternal margin. Lungs: Clear. Abdomen: Fairly soft. Mildly distended. She does have some high pitched bowel sounds. Extremities: Trace edema. ASSESSMENT AND PLAN: 1. Abdominal pain. Her repeat x-ray of the abdomen was consistent with high-grade small bowel obstruction. She is having more nausea, diarrhea, and has high-pitched bowel sounds. I had a long discussion with Ms. Prather and we are going ahead and placing a nasogastric tube to low Gomco suction. 2. Acute renal failure. Her renal function has improved significantly and she is nearing her baseline. 3. Type 2 insulin-dependent diabetes mellitus. We will continue patterned sugars, Humulin sliding scale, and her regular home dosage of Lantus.
--- NOTE | 2016-05-14 12:21 | PROGRESS NOTE ---
DATE: 05/14/2016 SUBJECTIVE: Ms. Prather is resting quietly in bed. She denies any chest pain. No increased work of breathing. States that she is feeling much better. Denies nausea and vomiting. OBJECTIVE: Her most recent vital signs are temperature 98.5 degrees, blood pressure 126/45, heart rate 74, respirations 19. She is currently on room air. Last recorded saturation 99%. She has had 360 in. She has had 200+ out void. LABORATORY DATA: This a.m., sodium 132, potassium 4.6, chloride 94, CO2 22, BUN 61, creatinine 1.4. Glucose 260. Anion gap 16, calcium 8.7, phosphorus 1.6, albumin 3.4. Previous hemoglobin 9.8 on the . PHYSICAL EXAMINATION: General: This is an 80-year-old white female. She is sitting up in bed. She is resting. She states that she has been intermittently awake since 2:30 this a.m. She is in no acute distress. Skin: Warm and dry. HEENT: Normocephalic, atraumatic. Conjunctiva is pale. She has ZUNILDA. Mucous membranes moist. Neck: Supple. Trachea midline. No JVD. Cardiovascular: Regular rate and rhythm. She continues with a soft systolic murmur. No gallop noted. Lungs: Clear to auscultation anteriorly. Equal excursion. She remains on room air. Abdomen: Round, soft, nontender. Positive bowel sounds. Genitourinary: Not inspected. She has adequate void. Extremities: Continues with 1+ edema. No clubbing or cyanosis. Neurological: Alert and oriented x3. Integumentary: No rashes or lesions evident. ASSESSMENT AND PLAN: 1. Acute kidney injury. Patient's creatinine continues to improve. She has leveled off at a baseline of creatinine of 1.4. BUN continues to remain stable at 61. No indications for any intervention at this time. We will continue to monitor and set up for an outpatient follow up after discharge. 2. Electrolytes and acid-base balance. These are stable. 3. Anemia. This remains low but stable. No need for intervention. I would like to thank you for allowing us to follow with this patient. Data reviewed, discussed with Ekaterina Howell on 05/14/16. I agree with the above assessment and plan of care. rg Dictated by CARLOS Anderson MD [facility]
--- NOTE | 2016-05-14 13:55 | PROGRESS NOTE ---
DATE: 05/14/2016 SUBJECTIVE: The patient is sitting up on the side of the bed. Per Dr. Goldberg's progress note, they plan to place an NG tube today. She has not had that done yet. Her abdominal x-ray on 05/13/2016 showed no change in the small bowel obstruction. There continues to be high grade small bowel obstruction noted. The patient denies vomiting today. OBJECTIVE: Respiratory essentially clear. Cardiovascular: Regular rate and rhythm. Abdomen: Obese. Large, with hypoactive bowel sounds. Vital signs: Temperature is 98.5, pulse 74, respirations 19, blood pressure 126/45. General: The patient is awake and alert, in no acute distress. She is sitting on the side of the bed. DIAGNOSTIC DATA: Hematology on 05/13/2016 showed WBC of 9.64, hemoglobin 9.8, hematocrit 29.2, MCV of 84.1, platelets 204. Chemistry showed sodium 132, potassium 4.6, chloride 94, CO2 of 22, BUN is 16, creatinine 1.4, glucose 260, calcium 8.7, phosphorus 1.6. ASSESSMENT: 1. Small bowel obstruction. 2. Acute renal failure. 3. Diabetes. 4. Recent cholecystectomy. 5. Electrolyte imbalance. PLAN: Continue supportive care. There is plan to place an NG tube. We will continue to follow. Dr. Lawler will be available while Dr. Clements is out this week. Dictated by CARLOS Kiser for Med Clements MD
[2016-05-14] MEDS: ZOFRAN ODT PO PRN (16:00)
[2016-05-14] MEDS: SINEMET CR 25/100 PO SCH (20:22)
[2016-05-15] MEDS: ZOFRAN ODT PO PRN (02:25)
[2016-05-15] MEDS: HUMALOG SUBQ PRN (05:33)
[2016-05-15] MEDS: REGLAN PO SCH ×3 (06:35→18:48)
[2016-05-15] MEDS: PRILOSEC PO SCH (06:35)
[2016-05-15 08:09] LABS: ALBUMIN 3.8 g/dL (3.5-5.0)
[2016-05-15] MEDS ORDERED: NS 1,000 ML IV SCH (09:15)
[2016-05-15] MEDS: ELIQUIS PO SCH (09:46)
[2016-05-15] MEDS: SYNTHROID PO SCH (09:46)
[2016-05-15] MEDS: CARDIZEM LA PO SCH (09:46)
[2016-05-15] MEDS: COREG PO SCH (09:46)
[2016-05-15] MEDS: MIRALAX PO SCH (09:46)
--- NOTE | 2016-05-15 10:46 | Diag Imaging Result Document ---
PROCEDURE NAME: ABDOMEN FLAT/UPRIGHT - 05/15/2016 FLAT AND UPRIGHT ABDOMEN: FINDINGS: There are markedly distended small bowel loops in the midabdomen. There is some gas in the stomach without evidence of dilatation. There is very little colonic gas. This was also the case on 05/13/2016. IMPRESSION: Small bowel obstruction.
--- NOTE | 2016-05-15 13:49 | PROGRESS NOTE ---
DATE: 05/15/2016 SUBJECTIVE: Ms. Prather continues with periodic episodes of nausea and dry heaves. She is not passing any gas. She is still having loose stools. Her flat and upright abdominal film demonstrated markedly distended small bowel loops in the mid abdomen. There was some gas in the stomach. There was very little colonic gas. I tried to place an NG-tube the other day because of worsening symptoms, but she refused to have one placed. She was wanting to be conservative. She has been sipping liquids and we been cautiously hydrating her. Unfortunately, her symptoms have not improved dramatically with conservative measures. Her renal function has deteriorated overnight. Creatinine jumped from 1.4-2.5. OBJECTIVE: Vital Signs: Temperature 97.8 degrees, pulse 89, respirations 20, BP 115/49. CV: Regular rate and rhythm with a soft systolic murmur. Lungs: Clear. Abdomen: Soft, but mildly distended. High-pitched bowel sounds. ASSESSMENT AND PLAN: 1. Small bowel obstruction. She is not passing gas. She is having some intermittent loose stools. She still has nausea. Her x-rays look worse. We have tried to treat her as conservatively as possible and to respect her wishes that she did not want a nasogastric tube. Given the fact that her symptoms are not significantly better and her x-rays look worse, I really feel that we have no choice but to place a nasogastric tube. I have stressed the fact to her that she runs the risk of getting gangrene and ischemic bowel insult to the gut, which could lead to peritonitis and . After a long discussion with Ms. Prather, she has agreed to having a nasogastric tube placed to low Gomco suction. 2. Acute renal failure. I am going begin normal saline at 60 mL per hour and recheck a basic metabolic panel in the morning.
--- NOTE | 2016-05-15 14:58 | Diag Imaging Result Document ---
PROCEDURE NAME: CHEST/ABD TUBE PLACEMENT - 05/15/2016 PORTABLE EXAM FOR NASOGASTRIC TUBE PLACEMENT: FINDINGS: The tip of the nasogastric tube is at the expected location of the fundus of the stomach. IMPRESSION: Tip of nasogastric tube in fundus of stomach.
[2016-05-16] MEDS: SINEMET CR 25/100 PO SCH (00:06)
[2016-05-16] MEDS: CARDIZEM LA PO SCH (00:07)
[2016-05-16] MEDS: REGLAN LIQUID NG SCH ×2 (00:38→18:20)
[2016-05-16] MEDS: ELIQUIS PO SCH (00:38)
[2016-05-16] MEDS: COREG PO SCH ×2 (00:38→14:34)
[2016-05-16] MEDS: HUMALOG SUBQ PRN (05:39)
[2016-05-16] MEDS ORDERED: PRILOSEC ORAL SUSPENSION PO SCH (07:00)
[2016-05-16 07:14] LABS: ALBUMIN 3.3 g/dL (3.5-5.0); CALCIUM 8.2 mg/dL (8.8-10.2); POTASSIUM 4.4 mmol/L (3.5-5.1)
[2016-05-16] MEDS ORDERED: NS 500 ML IV ONE (08:09)
[2016-05-16] MEDS: HUMULIN N SUBQ SCH (08:16)
[2016-05-16] MEDS ORDERED: ELIQUIS PO SCH (09:00)
--- NOTE | 2016-05-16 10:06 | PROGRESS NOTE ---
DATE: 05/16/2016 SUBJECTIVE: The patient had an NG tube placed yesterday with over 2 L output. She feels better. She says she has also had 3 bowel movements but cannot remember passing gas over the last 24 hours. OBJECTIVE: General: She is alert and oriented x3, no acute distress. GI: Soft. Obese, not particularly tight. She has a few bowel sounds. She is nontender. She denies any abdominal pain. Vital Signs: She is afebrile. Vital signs are stable. LABORATORY DATA: Sodium 130. Potassium 4.4. Chloride 89. CO2 of 21. BUN 93. Creatinine 3.9. Glucose 269. Phosphorous 2.9. IMAGING: Abdominal x-ray yesterday showed persistent small bowel dilation and very little colonic gas. This is unchanged for the last several studies. This is consistent with small-bowel obstruction. ASSESSMENT AND PLAN: This is an 81-year-old female status post laparoscopic cholecystectomy with persistent nausea, vomiting, and abdominal distention. This is a partial small bowel obstruction versus ileus. She has not had a CAT scan. We will go ahead and check a CAT scan of abdomen and pelvis with oral contrast only. If she does not improve in the next 24 hours, then I would consider diagnostic laparoscopy.
[2016-05-16] MEDS: HUMALOG SUBQ SCH ×2 (11:21→16:17)
--- NOTE | 2016-05-16 11:22 | PROGRESS NOTE ---
DATE: 05/16/2016 SUBJECTIVE: Patient currently sitting up in a chair. She has an NG tube to low intermittent suction with bilious material being removed. OBJECTIVE: Vital Signs: Temperature 97.4 degrees, pulse 84, respiratory rate 23, blood pressure 108/53. Intake 1.1 L. Output 3.4 L and 2.4 L of this was nasogastric drainage. Physical Examination: General: Elderly female sitting up in a chair. No acute distress. She is awake and alert. She states she is n.p.o. and not eating or drinking anything. HEENT: Normocephalic and atraumatic. Oral mucosa is dry. Neck: Supple. Trachea midline. There is no JVD. Cardiovascular: Regular rate and rhythm with a systolic murmur. Pulmonary: She has equal excursion. She is clear bilaterally and on room air. Abdomen: Soft with positive bowel sounds. : Not inspected. She continues to void without difficulty. Extremities: With 2+ pretibial edema. No clubbing or cyanosis. Chronic edema. Integumentary: Skin is warm and dry otherwise without rash or lesion. Lab Data: WBC of 9.6, hemoglobin 9.8, hematocrit 29.2. Sodium 130, potassium 4.4, CO2 21, BUN 93, creatinine 3.9, calcium 8.2. Phosphorus 2.9, albumin 3.3. ASSESSMENT AND PLAN: 1. Acute overlying acute kidney disease. Her creatinine worsened over the last couple of days. The patient has been nothing per oral secondary to a small bowel obstruction. She had normal saline started at an appropriate rate yesterday and continued overnight. We will recheck her urine studies this morning as it is likely that she has gotten somewhat prerenal secondary to her gastrointestinal situation. She has no absolute indication for intervention at this time. We will continue to make further decisions based on her labs and clinical evaluation. 2. Electrolytes, acid-base balance, anemia. These are all stable. Dictated by CARLOS Saucedo for Efren Galindo MD
[2016-05-16] MEDS: NS 1,000 ML IV SCH ×2 (11:49→18:17)
[2016-05-16 11:57] LABS: URINE SOURCE CLEAN CATCH
[2016-05-16 12:02] LABS: URINE MICRO REVIEW NEEDED? YES
[2016-05-16 12:04] LABS: BILIRUBIN URINE MODERATE (NEGATIVE); BLOOD URINE SMALL (NEGATIVE); COLOR YELLOW; GLUCOSE URINE NEGATIVE (NEGATIVE); LEUKOCYTES URINE LARGE (NEGATIVE); NITRITE URINE NEGATIVE (NEGATIVE); PROTEIN URINE 50 mg/dL (NEGATIVE); SP GRAVITY URINE 1.027; TURBIDITY URINE TURBID (CLEAR); UR EPITHELIAL CELLS <10 /HPF (<10); URINE BACTERIA 3+ /HPF; URINE RBC 20-40 /HPF (<10); URINE WBC TNTC /HPF (<10); UROBILINOGEN URINE 3 mg/dL (NORMAL)
[2016-05-16 12:09] LABS: URINE CASTS NONE SEEN; URINE CRYSTALS NONE SEEN; URINE SMALL ROUND CELLS RENAL PRESENT
--- NOTE | 2016-05-16 14:16 | Diag Imaging Result Document ---
PROCEDURE NAME: CT ABD/PELVIS ORAL CONTR ONLY - 05/16/2016 CT ABDOMEN AND PELVIS WITH ORAL CONTRAST ONLY: TECHNIQUE: Exam performed with oral contrast only per request of the referring provider. A dose reduction protocol was used. COMPARISON: No comparison exam. FINDINGS: There is questionable a small midline anterior abdominal wall hernia which is located just above the umbilicus. There is an air fluid level within the hernia, which may represents a loop of small bowel within the hernia. It is also possible that this represents a postoperative seroma, rather than a hernia. The oral contrast is substantially diluted beyond the proximal small bowel. There is dilatation of proximal mid small bowel, while the distal small bowel is not distended. These findings suggest a mid small bowel obstruction. The small bowel obstruction may relate to incarceration of small bowel at the possible anterior abdominal wall hernia, although it is difficult to definitively identify the transition point. It is also possible that the small bowel obstruction relates to postsurgical adhesion, rather than an incarcerated hernia. There is no substantial small bowel wall thickening apparent. There is uncomplicated colonic diverticulosis. There is no abscess identified. There is no free air. There is no substantial free fluid seen. There is a small hiatal hernia. There are no substantial abnormalities of the liver, spleen, adrenal glands, pancreas, or kidneys identified. The gallbladder is surgically absent. There are atherosclerotic calcifications noted. There are lumbar spine degenerative changes noted. There are bilateral L5 pars interarticularis defects with grade 1 L5-S1 spondylolisthesis also noted. IMPRESSION: 1. Questionable small lower anterior abdominal wall hernia at the midline slightly above the umbilicus, which may contain a loop of small bowel, versus postoperative seroma at this location. 2. Mid small bowel obstruction, which may relate to small bowel incarceration at the possible anterior abdominal wall hernia, or to surgical adhesion. Results discussed by telephone with Dr. Mathur at 2:10 p.m. on 05/16/2016. [facility]ENTER[facility]
[2016-05-16] MEDS: PROTONIX IV SCH (14:23)
[2016-05-16] MEDS ORDERED: CALMOSEPTINE OINTMENT TOP ONE (14:29)
[2016-05-16] MEDS ORDERED: SODIUM CHLORIDE 0.9% 10 ML ONE (14:51)
--- NOTE | 2016-05-16 19:11 | PROGRESS NOTE ---
DATE: 05/16/2016 SUBJECTIVE: The patient denies abdominal pain or nausea. She had a loose bowel movement. OBJECTIVE: She is afebrile. Vital signs are stable. Her NG tube has put out 350 mL today. CV: Appears to be regular rhythm. Respiratory: No work of breathing. GI: Soft, nontender. Hypoactive bowel sounds. IMAGING: Her abdomen and pelvis CT scan was reviewed with the radiologist and there is a questionable small midline periumbilical hernia with a possible seroma versus an incarcerated loop of small bowel. There also appears to be a mid small bowel obstruction with proximal dilated bowel and distal decompressed bowel. ASSESSMENT AND PLAN: An 81-year-old female with partial small bowel obstruction and recent laparoscopic cholecystectomy. Given her persistence of symptoms and CT scan findings I think a diagnostic laparoscopy is indicated. I have offered this to her and discussed this with her and her . We discussed the risks and benefits, including bleeding, injury to the intestines, possible negative findings and possible need for more extensive surgery with a full laparotomy, lysis of adhesions, possible bowel resection, and other imponderables. They understand and agree to proceed.
[2016-05-17] MEDS: SODIUM CHLORIDE 0.9% INJ SCH (00:15)
[2016-05-17] MEDS: COREG PO SCH ×3 (00:16→21:34)
[2016-05-17] MEDS: PROTONIX IV SCH ×3 (00:16→21:34)
[2016-05-17] MEDS: HUMALOG SUBQ SCH ×5 (00:48→22:53)
[2016-05-17] MEDS: HUMULIN N SUBQ SCH ×3 (00:48→22:53)
[2016-05-17] MEDS: NS 1,000 ML IV SCH (05:49)
[2016-05-17 06:55] LABS: ALBUMIN 3.1 g/dL (3.5-5.0); CALCIUM 7.8 mg/dL (8.8-10.2)
[2016-05-17] MEDS: SYNTHROID PO SCH (09:32)
[2016-05-17] MEDS: D5 1/2 NS 1,000 ML IV SCH ×2 (10:05→19:33)
--- NOTE | 2016-05-17 10:32 | PROGRESS NOTE ---
DATE: 05/17/2016 SUBJECTIVE: Her NG-tube has been disconnect for several hours this morning. No shortness of breath. No nausea or vomiting. She does have swelling. OBJECTIVE: Vital Signs: Blood pressure 122/50, heart rate 88, respiration 18, afebrile. General: She is an obese, white female, sitting up, in no distress. Skin: Warm and dry. Conjunctivae are pink. Pupils are equal. Neck: Neck veins are not appreciated in the erect position. Heart: Regular with systolic murmur. Lungs: Have equal breath sounds with no crackles. Abdomen: Soft, nontender. A few bowel sounds are audible. Extremities: Have 1 to 2+ edema. No clubbing or cyanosis. LABORATORY DATA: Sodium 132, potassium 4.0, chloride 94, bicarbonate 20, BUN 94, creatinine 2.8. IMPRESSION: Acute kidney injury. Labs are improved today after IV fluids. Dr. Lewis has changed the content of her IV fluids for today and we will monitor her labs over the next 24 hours. Most likely prerenal in origin. No reason to think she has developed acute tubular injury. Electrolytes and acid-base are acceptable.
--- NOTE | 2016-05-17 11:15 | PROGRESS NOTE ---
DATE: 05/16/2016 ADDENDUM REPORT: After further chart review, it is apparent to me that she is on Eliquis currently. Therefore, her semielective surgery tomorrow I think should be delayed. We should stop her Eliquis and hold it for at least 48 hours if possible prior to intervening. I have explained this to her, and we will put the plans for diagnostic laparoscopy on hold for now.
--- NOTE | 2016-05-17 14:50 | PROGRESS NOTE ---
DATE: 05/17/2016 SUBJECTIVE: The patient denies nausea, vomiting or abdominal pain. OBJECTIVE: Vital Signs: She is afebrile. Vital signs are stable. An NG tube had 350 mL out. General: She is alert and oriented x4. No acute distress. GI: Soft, obese, nontender. A few bowel sounds are heard. LABORATORY: Potassium 4.0, BUN 94, creatinine 2.8. ASSESSMENT/PLAN: An 81-year-old female with partial small bowel obstruction versus ileus in the setting of recent laparoscopic cholecystectomy. She has had multiple prior operations. We are going to go ahead and get a small bowel follow-through today and, pending these results, we will consider diagnostic laparoscopy in the next couple of days versus continued observation. We are holding her Eliquis at this time in the anticipation of possible laparoscopy.
[2016-05-18] MEDS: D5 1/2 NS 1,000 ML IV SCH (04:23)
[2016-05-18] MEDS: HUMALOG SUBQ SCH ×4 (06:18→22:43)
[2016-05-18] MEDS: SYNTHROID PO SCH (06:47)
[2016-05-18 07:13] LABS: ALBUMIN 2.6 g/dL (3.5-5.0); CALCIUM 7.2 mg/dL (8.8-10.2); POTASSIUM 3.3 mmol/L (3.5-5.1)
[2016-05-18] MEDS: HUMULIN N SUBQ SCH ×2 (09:51→22:41)
[2016-05-18] MEDS: COREG PO SCH ×2 (09:55→22:40)
[2016-05-18] MEDS: PROTONIX IV SCH ×2 (09:55→22:40)
[2016-05-18] MEDS ORDERED: POTASSIUM CHLORIDE 40 MEQ in NS 250 ML IV ONE (11:12)
--- NOTE | 2016-05-18 11:43 | PROGRESS NOTE ---
DATE: 05/18/2016 SUBJECTIVE: She states she has passed gas. She has not vomited. OBJECTIVE: Vital Signs: Blood pressure 129/69, heart rate 87, respirations 21, afebrile. Intake 2.3 L. Output 400 mL General: No acute distress. Skin: Warm and dry. HEENT: Conjunctivae are pink. Neck: Neck veins are not distended. Heart: Regular without gallops. Lungs: Have equal breath sounds. No crackles. Abdomen: Obese and soft. Bowel sounds are present but diminished. Extremities: Have 1+ edema. No clubbing or cyanosis. LABORATORY DATA: Sodium 136, potassium 3.3, chloride 101, bicarbonate 21, BUN 67, creatinine 1.4. IMPRESSION: 1. Acute kidney injury. Improving with IV fluid resuscitation. Dr. Lewis has adjusted her IV fluid rate. Observe. 2. Hypokalemia. We will give 1 dose of IV potassium. 3. Acid base acceptable.
[2016-05-18] MEDS: D5 1/2 NS + KCL 10 MEQ 1,000 ML IV SCH ×2 (11:55→22:44)
--- NOTE | 2016-05-18 15:29 | Diag Imaging Result Document ---
PROCEDURE NAME: SMALL BOWEL SERIES ONLY - 05/18/2016 SMALL BOWEL SERIES: FINDINGS: Following the administration of small bowel barium, there is barium throughout most of the colon by 5 hours and 30 minutes. There is no apparent mucosal fold thickening. The terminal ileum appears to be within normal limits. There is no tenderness to palpation in any portion of the small bowel. IMPRESSION: No evidence of obstruction or definite acute abnormality. The fluoroscopic dose was 963.3 centigray per square centimeter, and the fluoro time was 25 seconds.
[2016-05-18] MEDS: SODIUM CHLORIDE 0.9% INJ SCH (22:40)
[2016-05-19] MEDS: SYNTHROID PO SCH (05:19)
[2016-05-19 07:27] LABS: ALBUMIN 2.5 g/dL (3.5-5.0); CALCIUM 7.3 mg/dL (8.8-10.2); POTASSIUM 3.9 mmol/L (3.5-5.1)
[2016-05-19] MEDS: HUMALOG SUBQ SCH ×4 (09:15→22:28)
[2016-05-19] MEDS: HUMULIN N SUBQ SCH ×2 (09:16→22:15)
[2016-05-19] MEDS: D5 1/2 NS + KCL 10 MEQ 1,000 ML IV SCH (09:17)
[2016-05-19] MEDS: PROTONIX IV SCH ×2 (09:18→22:28)
[2016-05-19] MEDS: COREG PO SCH ×2 (09:18→22:28)
[2016-05-19] MEDS: SODIUM CHLORIDE 0.9% INJ SCH (09:19)
--- NOTE | 2016-05-19 15:13 | PROGRESS NOTE ---
DATE: 05/19/2016 SUBJECTIVE: The patient's chart was reviewed. In summary, the patient was admitted on 05/07/2016 with persistent vomiting. The patient was found to have acute renal failure and hyponatremia. Further evaluation confirmed a small bowel obstruction/partial small bowel obstruction. While hospitalized, patient has been treated with IV fluids. Doctors Cynthia, Mateo, and Tyree have been consulted. Yesterday, the patient began passing flatus. Her NG tube was clamped. Clear liquids were initiated. The patient states she did very well. She denies nausea or vomiting associated. She has continued to pass flatus throughout the last 24 hours. This morning, Dr. Land removed her NG tube. She is very happy with her progress. She denies fevers, chills, nausea, vomiting, shortness of breath, or chest discomfort. OBJECTIVE: Vital signs: T-max 98.2 degrees, heart rate 82-90, respirations 18-21, blood pressure is 129-137 over 55-94. General: Well nourished, well developed, in no acute distress. Cardiovascular: Regular rate and rhythm. No significant rubs or gallops. A 3/6 systolic murmur at the right upper sternal border. Pulmonary: Clear to auscultation bilaterally. Abdomen: Soft, nontender, nondistended. Positive bowel sounds. Extremities: Moves all extremities well. No significant clubbing or cyanosis. Patient has 2+ lower extremity edema bilaterally. Dermatologic: Evaluation reveals venous stasis changes in bilateral lower extremities. LABORATORY DATA: Sodium 137, potassium 3.9, chloride 103, bicarb 21, BUN 41, creatinine 1.1, glucose 86, calcium 7.3, phosphorus 1.6, albumin 2.5. ASSESSMENT AND PLAN: 1. Small bowel obstruction. This appears to have resolved spontaneously. Surgical intervention was not warranted. As she has tolerated clear liquid diet, her nasogastric tube was removed. We will advance diet to a full liquid diet. We will follow this closely. 2. Hypokalemia. Patient has achieved improvement. Potassium level today is 3.9. 3. Type 2 diabetes. The patient's blood sugars are reasonably controlled on her current regimen. We will follow this. 4. Volume overload/lower extremity edema. We will discontinue patient's IV fluids as she is taking p.o. We will follow this closely as well. 5. Deconditioning/weakness. Patient is currently being followed with physical therapy. We will continue this. 6. Disposition. At this point, patient continues to require correction care in a hospital setting. I anticipate the patient will be able to discharge home versus rehabilitation in the near future. 7. Acute renal failure. The patient's creatinine has improved to 1.1. We will remain aware. 8. Aortic stenosis. Patient has severe to critical aortic stenosis. We will remain aware.
[2016-05-19] MEDS: MACROBID PO SCH ×2 (18:39→22:28)
[2016-05-20 05:08] LABS: URINE MICRO REVIEW NEEDED? NO; URINE SOURCE CLEAN CATCH
[2016-05-20 05:53] LABS: BILIRUBIN URINE NEGATIVE (NEGATIVE); BLOOD URINE NEGATIVE (NEGATIVE); COLOR YELLOW; GLUCOSE URINE NEGATIVE (NEGATIVE); LEUKOCYTES URINE MODERATE (NEGATIVE); NITRITE URINE NEGATIVE (NEGATIVE); PH URINE 5.5; PROTEIN URINE TRACE mg/dL (NEGATIVE); SP GRAVITY URINE 1.015; TURBIDITY URINE CLEAR (CLEAR); UROBILINOGEN URINE NORMAL (NORMAL)
[2016-05-20 05:55] LABS: UR EPITHELIAL CELLS <10 /HPF (<10); URINE BACTERIA NEGATIVE /HPF; URINE CULTURE NEEDED? YES; URINE RBC <10 /HPF (<10)
[2016-05-20] MEDS: SYNTHROID PO SCH (06:03)
[2016-05-20] MEDS: HUMALOG SUBQ SCH ×4 (06:04→23:30)
[2016-05-20 07:02] LABS: ALBUMIN 2.7 g/dL (3.5-5.0); CALCIUM 7.2 mg/dL (8.8-10.2)
[2016-05-20] MEDS: COREG PO SCH ×2 (08:38→21:08)
[2016-05-20] MEDS: MACROBID PO SCH ×2 (08:38→21:08)
--- NOTE | 2016-05-20 09:58 | PROGRESS NOTE ---
DATE: 05/20/2016 SUBJECTIVE: She is using the bathroom this morning. She is having bowel movements. She is tolerating a diet. OBJECTIVE: Temperature is 97.7, pulse 84, blood pressure 147/60, oxygen saturation 100% on nasal cannula. General: She is alert and oriented. She is using the restroom this morning. ASSESSMENT AND PLAN: This is an 81-year-old female status post laparoscopic cholecystectomy with postoperative ileus. She is doing well. She is tolerating a diet and having bowel function. Dr. Gorman is following her regarding final disposition. We will continue to follow along while she is here.
--- NOTE | 2016-05-20 16:18 | PROGRESS NOTE ---
DATE: 05/20/2016 SUBJECTIVE: She is sitting up in a chair. She states she has ambulated in the hallway without difficulty and has eaten and had bowel movements. She anticipates discharge tomorrow. OBJECTIVE: Vital Signs: Blood pressure 116/56, heart rate 66, respirations 20, afebrile. Intake and output: Intake 1.7 L. Output 450 mL, but voids are not measured. Skin: Warm and dry. HEENT: Conjunctivae are pink. Pupils are equal. Neck: Neck veins are not distended. Heart: Regular with systolic murmur. Lungs: Have equal breath sounds. No crackles. Abdomen: Obese and soft. Bowel sounds are present. Extremities: Have 1+ edema. No clubbing or cyanosis. LABORATORY DATA: Sodium 137, potassium 4.0, chloride 103, bicarbonate 20, BUN 30, creatinine 1.0. IMPRESSION: Acute kidney injury. Resolving. Electrolytes and acid-base status are acceptable. I will sign off at this time but if she needs follow up either in the hospital or as an outpatient, I would be glad to provider that.
[2016-05-21] MEDS: HUMALOG SUBQ SCH (06:14)
[2016-05-21] MEDS: SYNTHROID PO SCH (06:16)
[2016-05-21 08:50] VITALS: BP 121/88
[2016-05-21] MEDS: MACROBID PO SCH (09:27)
[2016-05-21] MEDS: COREG PO SCH (09:27)
--- NOTE | 2016-05-21 10:50 | DISCHARGE SUMMARY ---
ADMISSION DATE: 05/07/2016 DISCHARGE DATE: 05/21/2016 FINAL DIAGNOSES: 1. Persistent nausea and vomiting. 2. Small bowel obstruction, resolved. 3. Acute exacerbation of chronic kidney disease due to dehydration. 4. Hyponatremia. 5. Leukocytosis. 6. Hypothyroidism, replaced. 7. Type 2 diabetes mellitus. PRESENT ILLNESS: Ms. Prather is an 80-year-old, white female who recently underwent laparoscopic cholecystectomy on 04/25/2016. She had some nausea and vomiting postoperatively , as well as hyponatremia. However, she improved and was discharged, but since discharge her nausea and vomiting have recurred. She was seen in the emergency room where she was found to be quite hyponatremic with a serum sodium of 165 and very dehydrated with a BUN of 135, creatinine of 6.7. PHYSICAL EXAMINATION: General: Revealed an alert, slightly pale elderly woman , who is alert and oriented. Skin: Warm without jaundice, skin turgor was slightly diminished. Neck: Supple with no JVD. Cardiovascular: Regular rate and rhythm. Apical rate of 80, harsh 3/ 6 systolic ejection murmur at the left upper sternal border with some radiation to the right upper sternal border and apex. Lungs: Clear. DATABASE: Abdominal x-rays shows some dilated and distended loops of small bowel in the mid lower abdomen with no free air or organomegaly. There is no fecal impaction. HOSPITAL COURSE: She was admitted with diagnosis of persistent nausea, vomiting , hyponatremia and acute exacerbation of chronic kidney disease. She was seen in consultation by her surgeon, Dr. Rochelle Marie, also by division operations specialist, Dr. Efren Galindo. Her nausea and vomiting persisted. GI was consulted as well, Dr. Med Clements. With IV fluids, her BUN and creatinine as well as serum sodium gradually improved. Her diet was slowly advanced and she tolerated this okay for a day or so and then began vomiting again. A nasogastric tube was placed on 05/15 and this seemed to accelerate her recovery. It was removed on May 19 after significant decompression had been accomplished. Her bowel sounds improved and her diet was slowly advanced. Today, she has been tolerating a soft GI diet for 24 hours without any nausea or vomiting. Her serum sodium has returned to greater than 130. Her BUN is 30 with creatinine 1.0. She is discharged in improved condition and returned to my office in 1 week for followup. DISCHARGE MEDICATIONS: Carvedilol 25 mg q.12 hours. Eliquis 5 mg q.12 hours. Sinemet 25/100 CR 1 at bedtime for restless legs. Diltiazem long-acting 120 mg every 12 hours. Fluoxetine 20 mg every a.m., folic acid 1 mg daily. Levothyroxine 100 mcg daily. Metformin ER 750 mg twice a day. Ramipril 10 mg daily. Spironolactone hydrochlorothiazide 1 daily. She is to hold her Prandin and methotrexate. Also Reglan and Stephen at home. [facility]
== END 2016-05-21 10:44 | disposition home or self-care (01) | DRG 683 ==
LOC: EDBD → ED 14:23 → 3N 17:36
PROVIDERS: ADMIT Internal Medicine; ATTEND Internal Medicine
PROC: 0D9670Z Drainage of Stomach with Drainage Device, Via Natural or Artificial Opening (ICD-10-PCS; principal; 2016-05-15)
DX: N17.9 Acute kidney failure, unspecified (principal); E87.1 Hypo-osmolality and hyponatremia; K56.60 Unspecified intestinal obstruction; E11.22 Type 2 diabetes mellitus with diabetic chronic kidney disease; E87.70 Fluid overload, unspecified; I48.0 Paroxysmal atrial fibrillation; E86.0 Dehydration; I12.9 Hypertensive chronic kidney disease with stage 1 through stage 4 chronic kidney disease, or unspecified chronic kidney disease; E03.9 Hypothyroidism, unspecified; E78.5 Hyperlipidemia, unspecified; D64.9 Anemia, unspecified; M06.9 Rheumatoid arthritis, unspecified; I35.0 Nonrheumatic aortic (valve) stenosis; N12 Tubulo-interstitial nephritis, not specified as acute or chronic; E87.6 Hypokalemia; N18.9 Chronic kidney disease, unspecified; L40.9 Psoriasis, unspecified; H91.92 Unspecified hearing loss, left ear; Z79.899 Other long term (current) drug therapy; Z79.84 Long term (current) use of oral hypoglycemic drugs; Z79.02 Long term (current) use of antithrombotics/antiplatelets; Z87.11 Personal history of peptic ulcer disease
CPT/HCPCS: 51702; 71020; 74000; 74020; 74176; 74250; 76770; 80048; 80053; 80069; 81001; 82533; 82570; 82948; 83735; 84156; 84300; 84443; 85025; 87077; 87088; 87186; 87205; 87324; 96374; C9113; J0834; J1720; J1815; J2765; J3480; J7030; J7040; J7050; 97001-GP; 97110-GP; 97116-GP; 97530-GP; S0164